=== PATIENT | female | born 1955 | race Hispanic/Latino ===

== ENCOUNTER 2016-10-04 09:51 | Outpatient (CLI) | payer BC ==
--- NOTE | 2016-10-04 14:29 | Mammography Report ---
BILATERAL DIGITAL SCREENING MAMMOGRAM with CAD: 10/04/16 09:51:00 CLINICAL: Routine screening. COMPARISON:05/14/12 FINDINGS: The breasts are heterogeneously dense, which may obscure small masses.Bilateral scattered benign punctate calcifications. No mass, architectural distortion or suspicious calcifications. IMPRESSION: No mammographic evidence of malignancy. BI-RADS CATEGORY: 2 - - Benign RECOMMENDATION: Routine mammographic screening in one year. COMMENT: Patient follow-up letters are generated by our [employer] application.
== END 2016-10-04 09:52 | disposition home or self-care (01) ==
LOC: SPVWC 09:51
PROVIDERS: ATTEND Family Medicine
DX: Z12.31 Encounter for screening mammogram for malignant neoplasm of breast (principal)
CPT/HCPCS: 77067; G0202